=== PATIENT | female | born 1950 | race Caucasian/White ===

== ENCOUNTER 2017-05-31 07:03 | Day surgery (SDC) | payer BC ==
[~2017-05-31] VITALS: Ht 175.3 cm; Wt 65.8 kg
[2017-05-31 07:44] VITALS: Ht 175.3 cm; Wt 65.8 kg
[2017-05-31] MEDS ORDERED: LEVO125T75 PO (07:47)
[2017-05-31] MEDS ORDERED: VENL150C PO (07:47)
[2017-05-31] MEDS ORDERED: LIDOCAINE 4% SOLUTION 50 ML BTL ONE (08:14)
[2017-05-31 08:17] VITALS: BP 140/73; PULSE 87; RESP 16
--- NOTE | 2017-05-31 09:24 | OPPN ---
Date/Time of Note Date/Time of Note DATE: 05/31/17 TIME: 09:21 Proc Note GI Procedure Date 05/31/17 Indication: screening/surveillance, diagnostic Pre-procedure Diagnosis 1. Epigastric pain 2. Surveillance for colon polyp Post-procedure Diagnosis 1. Gastritis 2. Superficial duodenal ulcer 3. Rectal polyp, diminutive successfully removed by jumbo biopsy forceps 4. Thickened fold at 55 cm 1 cm in diameter jumbo biopsies obtained 5. External hemorrhoids 6. Normal terminal ileum Procedure Performed: Endoscopy, Colonoscopy Surgeon see signature line Fitter Machinist none Anesthesia Type: MAC Tourniquet Time none EBL none Transfusion required none Biopsy 1: Stomach biopsy and duodenal biopsy Biopsy 2: Rectal polyp Biopsy 3: Thickened fold at 55 cm 2 biopsies Grafts/Implants none Tubes/Drains none Complication(s) none Disposition: PACU Procedure Description Dictated DAYANARA REYES MD May 31, 2017 09:24
[2017-05-31] MEDS ORDERED: MIDAZOLAM 1 MG/ML 2 ML INJ ONE ×3 (09:26)
[2017-05-31] MEDS ORDERED: FENTAnyl 50 MCG/ML VIAL ONE (09:26)
--- NOTE | 2017-05-31 09:36 | GILP ---
DATE OF PROCEDURE: 05/31/2017 PROCEDURE PERFORMED: 1. Colonoscopy with biopsy. 2. EGD with biopsy. INDICATION: A 66-year-old female undergoing this procedure for colon cancer screening and also for epigastric pain. The purpose is to evaluate the upper GI tract, and find out the cause of abdominal pain and colonoscopy for the surveillance of colon polyp. The risks of the procedure, related and unrelated complications, sedative risks, and alternatives discussed and informed consent was obtaine d. ESOPHAGOGASTRODUODENOSCOPY: The patient was brought to the GI lab, sedated with Versed 6 mg and fe ntanyl 100 mg. After optimum sedation, scope was passed with much ease into esophagus. Z line was at 44 cm. The esophagus was grossly normal. Stomach mucosa revealed gastritis. Multiple biopsies obtained, totaling 4 to rule out H. pylori infection. Duodenum bulb was normal. Second part, almos t like an abscess ulcer and ampulla that appeared normal. Biopsy taken from the abscessed ulcer. R etroversion done in the stomach which was normal. Scope was straightened out and removed with good patient tolerance. IMPRESSION 1. Gastritis. 2. Normal Z-line at 44 cm. 3. Superficial ulcer in the second part of the duodenum, proximal to the ampulla. 4. Normal ampulla. Plan: Review histopathology. COLONOSCOPY REPORT: The patient was turned around. Digital examination done, which was normal. Sc ope was passed with much ease into rectum, advanced through sigmoid, descending, transverse colon al l the way into the cecum and finally into terminal ileum. Terminal ileum was normal up to 1 foot. Rest of the colon appeared normal. Clarity and cleanliness was good. At 55 cm, though there was a thickened fold, which was 1 cm in diameter. Two jumbo biopsies obtained and it was all obliterated and sent for analysis. In the rectum, another small polyp was identified, successfully removed in t rosaline by jumbo biopsy forceps. External hemorrhoids identified. The patient also has a small mouth 2 to 3 diverticula on the left side of the colon. IMPRESSION: 1. External hemorrhoids. 2. Diminutive polyp in the rectum, successfully removed by jumbo biopsy forceps. 3. polyp or thickened fold at 55 cm. Two jumbo biopsies obtained, it was 1 cm in diameter. 4. Mild diverticulosis. 5. Normal all the way into the cecum. 6. Normal terminal ileum up to 1 foot. 7. Clarity and cleanliness was good. PLAN: Review the histopathology of the polyp and based on the histopathology we will decide whether the patient needs another screening colonoscopy for surveillance of polyp after 5 years. The patie nt should stay on high fiber diet and avoid red meat. Dictated By: DAYANARA CALDERON/KAITLYNN Conf#: [id number] DID#: [id number]
[2017-05-31 09:45] VITALS: BP 107/54; RESP 20
== END 2017-05-31 11:11 | disposition home or self-care (01) ==
LOC: GIL 07:03
PROVIDERS: ATTEND Internal Medicine Gastroenterology
DX: Z12.11 Encounter for screening for malignant neoplasm of colon (principal); K62.1 Rectal polyp; K63.5 Polyp of colon; K25.9 Gastric ulcer, unspecified as acute or chronic, without hemorrhage or perforation; K64.4 Residual hemorrhoidal skin tags; K57.90 Diverticulosis of intestine, part unspecified, without perforation or abscess without bleeding; E03.9 Hypothyroidism, unspecified
CPT/HCPCS: 43239; 45380; 88305; 88312; J2250; J3010